=== PATIENT | female | born 1990 | race Caucasian/White ===

== ENCOUNTER 2018-07-31 16:24 | Emergency (ER) | payer OTHER ==
[2018-07-31 16:30] VITALS: BMI 25.8
[2018-07-31 16:31] VITALS: RESP 18
[2018-07-31] MEDS ORDERED: Sodium Chloride 0.9% 1,000 ML IV STA (16:36)
--- NOTE | 2018-07-31 17:06 | ED PDOC ---
Arrival/HPI - General Chief Complaint: GI Problem Time Seen by Provider: 07/31/18 16:30 Historian: Patient - History of Present Illness Narrative History of Present Illness (Text): 07/31/18 16:58 27yo female with no pmhx bib EMS for complaint of epigastric abdominal pain with associated nausea, one episode of nonbloody/bilious vomiting, 3episdodes of watery diarrhea since earlier this morning. The mother by the bedside states she was not able to tolerate PO food at home. Denies fever, chills, sick contact, urinary symptoms, melena, hematemesis, chest pain, SOB, any other complaint. Past Medical History - Provider Review Nursing Documentation Reviewed: Yes - Infectious Disease Hx of Infectious Diseases: None - Tetanus Immunization Tetanus Immunization: Unknown - Past Medical History Past Medical History: No Previous - Cardiac Hx Cardiac Disorders: Yes - Psychiatric Hx Substance Use: No - Past Surgical History Past Surgical History: No Previous - Surgical History Hx Tonsillectomy: Yes - Anesthesia Hx Anesthesia: No - Suicidal Assessment Feels Threatened In Home Enviroment: No Family/Social History - Physician Review Nursing Documentation Reviewed: Yes Family/Social History: Unknown Family HX Smoking Status: Never Smoked Hx Alcohol Use: No Hx Substance Use: No Hx Substance Use Treatment: No Allergies/Home Meds Allergies/Adverse Reactions: Allergies No Known Allergies Allergy (Verified 07/27/15 05:27) Review of Systems - Physician Review All systems were reviewed & negative as marked: Yes - Review of Systems Constitutional: Normal Eyes: Normal ENT: Normal Respiratory: Normal Cardiovascular: Normal Gastrointestinal: Abdominal Pain, Diarrhea, Nausea, Vomiting. absent: Constipation, Hematemesis Genitourinary Female: Normal Musculoskeletal: Normal Skin: Normal Neurological: Normal Endocrine: Normal Hemo/Lymphatic: Normal Psychiatric: Normal Physical Exam Vital Signs Reviewed: Yes Vital Signs Temp Pulse Resp BP Pulse Ox 07/31/18 16:24 97 F L 84 18 128/87 99 Temperature: Afebrile Blood Pressure: Normal Pulse: Regular Respiratory Rate: Normal Appearance: Positive for: Well-Appearing, Non-Toxic, Comfortable Pain Distress: None Mental Status: Positive for: Alert and Oriented X 3 - Systems Exam Head: Present: Atraumatic, Normocephalic Pupils: Present: PERRL Extroacular Muscles: Present: EOMI Conjunctiva: Present: Normal Mouth: Present: Moist Mucous Membranes Neck: Present: Normal Range of Motion Respiratory/Chest: Present: Clear to Auscultation, Good Air Exchange. No: Respiratory Distress, Accessory Muscle Use Cardiovascular: Present: Regular Rate and Rhythm, Normal S1, S2. No: Murmurs Abdomen: Present: Tenderness (Mild epigastric tenderness), Normal Bowel Sounds. No: Distention, Peritoneal Signs, Rebound, Guarding, McBurney's Point Tender, Rovsing's Sign Present Back: Present: Normal Inspection Upper Extremity: Present: Normal Inspection. No: Cyanosis, Edema Lower Extremity: Present: Normal Inspection. No: Edema Neurological: Present: GCS=15, CN II-XII Intact, Speech Normal Skin: Present: Warm, Dry, Normal Color. No: Rashes Psychiatric: Present: Alert, Oriented x 3, Normal Insight, Normal Concentration Medical Decision Making ED Course and Treatment: 07/31/18 19:07 PT present to ED for stated history. She was hemodynamically stable Labs UA 1L NS, Zofran, Pepcid Lab was reviewed and unremarkable. She had ketones in her UA but was rehydrated. She was able to tolerate PO in ED. Result was DW the pt. She was advised to follow BRAT diet. Referred to the clinic. Zofran/pepcid rx given. - Medication Orders Current Medication Orders: Sodium Chloride (Sodium Chloride 0.9%) 1,000 mls @ 1,000 mls/hr IV .Q1H STA Stop: 07/31/18 17:35 Discontinued Medications Famotidine (Pepcid) 20 mg IVP STAT STA Stop: 07/31/18 16:37 Ondansetron HCl (Zofran Inj) 4 mg IVP STAT STA Stop: 07/31/18 16:37 Disposition/Present on Arrival - Present on Arrival Any Indicators Present on Arrival: No History of DVT/PE: No History of Uncontrolled Diabetes: No Urinary Catheter: No History of Decub. Ulcer: No History Surgical Site Infection Following: None - Disposition Have Diagnosis and Disposition been Completed?: Yes Diagnosis: Abdominal pain, Vomiting and diarrhea Disposition: HOME/ ROUTINE Disposition Time: 18:35 Patient Problems: Current Active Problems Problem Status Onset Abdominal pain Acute Vomiting and diarrhea Acute Condition: STABLE Discharge Instructions (ExitCare): Acute Abdomen (Belly Pain), Adult (DC), Nausea and Vomiting, Adult (DC) Additional Instructions: Follow up with your Doctor Follow BRAT diet (Banana, plain rice, apple sauce, tea, crackers) Return to ED for any new symptoms Prescriptions: Famotidine [Pepcid] 20 mg PO DAILY #10 tab Ondansetron ODT [Zofran ODT] 4 mg PO Q6 #5 odt Referrals: Ana Lilia Reynolds MD [Medical Doctor] - Follow up with primary Forms: [employer] ([place]ian), WORK NOTE
[2018-07-31 17:34] LABS: EOS # 0.2 (0.0-0.7); GRAN # 8.22 (1.4-6.5); GRAN % 87.6 % (50.0-68.0); HEMOGLOBIN 13.7 g/dL (12.0-16.0); LYMPH # 0.7 (1.2-3.4); LYMPH % 7.2 % (22.0-35.0); MEAN CORPUSCULAR HEMOGLOBIN 27.4 pg (25.0-35.0); MEAN CORPUSCULAR HGB CONC 32.2 g/dl (31.0-37.0); MEAN PLATELET VOLUME 9.1 fl (7.0-11.0); MONO # 0.3 (0.1-0.6); MONO % 3.2 % (1.0-6.0); RED CELL DISTRIBUTION WIDTH 13.8 % (11.5-14.5); WHITE BLOOD COUNT 9.4 10^3/uL (4.5-11.0)
[2018-07-31 17:43] LABS: INR 1.07; PARTIAL THROMBOPLASTIN TIME 25.5 Seconds (25.1-36.5); PROTHROMBIN TIME 12.2 SECONDS (9.4-12.5)
[2018-07-31 17:48] LABS: ALB/GLOB RATIO 1.4 (1.1-1.8); ALBUMIN 4.3 g/dL (3.0-4.8); ALT/SGPT 31 U/L (7-56); AST/SGOT 28 U/L (14-36); BLOOD UREA NITROGEN 14 mg/dL (7-21); CALCIUM 9.1 mg/dL (8.4-10.5); GFR NON-AFRICAN AMERICAN > 60; LIPASE 57 U/L (23-300)
[2018-07-31 18:22] LABS: URINE BILIRUBIN NEGATIVE (NEGATIVE); URINE BLOOD SMALL (NEGATIVE); URINE GLUCOSE (UA) NEGATIVE (NEGATIVE); URINE LEUKOCYTE ESTERASE NEGATIVE Leu/uL (NEGATIVE); URINE PROTEIN 100 mg/dL (<30 mg/dL); URINE UROBILINOGEN 0.2 E.U./dL (<1 E.U./dL)
[2018-07-31 18:25] LABS: URINE APPEARANCE SLIGHT-CLOUDY (CLEAR); URINE COLOR YELLOW (YELLOW)
[2018-07-31 18:29] VITALS: BP 123/81; PULSE 83; TEMP 97.9; O2SAT 100
[2018-07-31 18:29] LABS: URINE BACTERIA TRACE /hpf; URINE HYALINE CAST 0 - 2 /hpf
== END 2018-07-31 19:10 | disposition home or self-care (01) ==
LOC: ED 16:24
DX: R10.9 Unspecified abdominal pain (principal); R11.10 Vomiting, unspecified; R19.7 Diarrhea, unspecified
CPT/HCPCS: 80053; 81001; 81025; 83690; 83735; 85025; 85610; 85730; 96361; 96374; 96375; 99285; J2405; J7030